=== PATIENT | male | born 1980 | race Caucasian/White ===

== ENCOUNTER 2018-06-26 20:05 | Emergency (ER) | payer SELFPAY ==
[~2018-06-26] VITALS: Ht 170.2 cm; Wt 83.9 kg
--- NOTE | 2018-06-26 20:20 | NUR ---
Dr. Jacobo at bedside for MSE.
[2018-06-26] MEDS ORDERED: IBUPROFEN 600 MG TABLET ONE (20:26)
--- NOTE | 2018-06-26 20:26 | NUR ---
Xray at bedside.
[2018-06-26] MEDS ORDERED: IBUPROFEN 600 MG TABLET PO ONE (20:30)
--- NOTE | 2018-06-26 20:53 | NUR ---
Patient discharged to home in stable conditon. Written and verbal after care instructions given. Patient verbalizes understanding of instructions. Patient ambulated out of ER with steady gait, no acute signs of distress, VSS, all belongings taken.
[2018-06-26 20:54] VITALS: BP 146/87
== END 2018-06-26 20:55 | disposition home or self-care (01) ==
LOC: ER 20:08
DX: S23.3XXA Sprain of ligaments of thoracic spine, initial encounter (principal); V43.52XA Car driver injured in collision with other type car in traffic accident, initial encounter; Y93.89 Activity, other specified; Y92.410 Unspecified street and highway as the place of occurrence of the external cause; Y99.8 Other external cause status
CPT/HCPCS: 72072; A4663

== ENCOUNTER 2022-04-22 09:35 | Emergency (ER) | payer SELFPAY ==
[~2022-04-22] VITALS: Ht 170.2 cm; Wt 79.4 kg
--- NOTE | 2022-04-22 10:35 | NUR ---
Dr Hernandez at the bedside for MSE.
--- NOTE | 2022-04-22 10:55 | NUR ---
Patient discharged to home in stable condition. Written and verbal after care instructions given. Patient verbalizes understanding of instructions. Stressed follow up or return to ER for worsening s/s.
[2022-04-22 11:21] VITALS: BP 119/70
== END 2022-04-22 11:00 | disposition home or self-care (01) ==
LOC: ER 09:35
DX: M54.2 Cervicalgia (principal); V89.2XXA Person injured in unspecified motor-vehicle accident, traffic, initial encounter; Y92.411 Interstate highway as the place of occurrence of the external cause
CPT/HCPCS: A4663